=== PATIENT | male | born 1995 | race Hispanic/Latino ===

== ENCOUNTER → 2018-12-16 | Outpatient (CLI) | payer OTHER ==
[~2018-12-16] MED LIST: ALBUTEROL SULFATE 0.083% 2.5 MG/3 ML INH IH ONE
== END | disposition home or self-care (01) ==
LOC: RESP 13:04
PROVIDERS: ATTEND Orthopaedic Surgery
DX: J44.9 Chronic obstructive pulmonary disease, unspecified (principal); F17.210 Nicotine dependence, cigarettes, uncomplicated
CPT/HCPCS: 71046; 94060; 94727; 94729